=== PATIENT | female | born 1990 ===

== ENCOUNTER 2021-05-07 14:13 | Inpatient (IN) | payer BC ==
[2021-05-07] MEDS ORDERED: miSOPROStoL 100 MCG TAB VAG ONE (14:14)
[2021-05-07] MEDS ORDERED: Ringers Lactate 1,000 ML IV PRN (14:14)
[2021-05-07] MEDS ORDERED: CARBOPROST TROME 250 MCG/ML IM PRN (14:14)
--- OUTSIDE RECORDS SUMMARY | 2021-05-07 14:15 | XMS REPORT | Continuity of Care Document ---
:1990 Author Organization [facility] t Address [address] [place] [address] [address]. [address] [place] [address] Care Team Providers Name Role Phone PCP, DOES NOT HAVE A Primary Care Physician Unavailable NAT Attending Clinician Unavailable Nat LOBO Attending Clinician Manish BEST Attending Clinician Unavailable Urszula HOFF Attending Clinician Unavailable Urszula HOFF Attending Clinician Unavailable KAVYA Attending Clinician Unavailable Payers Payer Name Policy Type Policy Number Effective Date Expiration Date S tommy [facility] [id number] 2019 00:00:00 Problems Condition Condition Condition Status Onset Resolution Last Treating Co mments Source Name Details Category Date Date Treatment Clinician Date No known No known Disease Unive rs active active ity of problems problems [facility] Allergies, Adverse Reactions, Alerts Allergy Allergy Status Severity Reaction(s) Onset Inactive Treating Comm ents Source Name Type Date Date Clinician NO KNOWN Drug Active Univers ALLERGIE Class ity of S [facility] Social History Social Habit Start Date Stop Date Quantity Comments Source Exposure to Not sure [facility] SARS-CoV-2 (event) Medica l Branch Sex Assigned At [birth year] [facility] 00:00:00 00:00:00 [facility] Smoking Status Start Date Stop Date Source Unknown if ever smoked [facility] Medications Ordered Filled Start Stop Current Ordering Indication Dosage Frequency Signature Comments Components Source Medication Medication Date Date Medication? Clinician (SIG) Name Name ketoconazol 2020-06 Yes [id number] Apply to Univers e 2 % cream 0-28 area(s) ity o f 00:00: daily. [address] metroNIDAZO 2020-06 Yes [id number] Apply to Univers LE 0.75 % 0-28 area(s) ity of gel 00:00: daily. [place] 00 Apply thin Medical film to Branch skin. ketoconazol 2020-06 Yes [id number] Apply to Univers e 2 % 0-28 area(s) it[place] of [place] Medical for Branch Itching. ketoconazol 2020- No [id number] Apply to Univers e 2 % cream 9-28 10-28 area(s) ity of 00:00: 00:00 daily. [place] 00 :00 Medical Branch metroNIDAZO 2020- No [id number] Apply to Univers LE 0.75 % 8-26 10-28 area(s) ity of gel 00:00: 00:00 daily. [place] 00 :00 Apply thin Medical film to Branch skin. fluocinonid 2019-06 Yes [id number] Apply to Univers e 0.05 % 2-14 area(s) 2 ity of solution 00:00: (two) [place] 00 times Medical daily. Branch ketoconazol 2019-06- No [id number] Apply to Univers e 2 % 1-16 10-28 area(s) ity of shampoo 00:00: 00:00 once daily Marco A as 00 :00 as needed Medical for Branch Itching. Procedures This patient has no known procedures. Encounters Start End Encounter Admission Attending Care Care Encounter Source Date/Time Date/Time Type Type Clinicians Facility Department ID 2021-04-05 2021-04-05 Outpatient Yin YOO [facility] [id number] [facility] 16:40:00 16:46:[address] [facility] 2021-04-05 2021-04-05 Office Nat [facility] [id number] [facility] 16:35:44 16:46:23 Visit Anna GUTHRIE [id number] TatyanaY [id number] [facility] [id number] [facility] AND KELLY [address] [place] [address] [facility] 2021-04-05 2021-04-05 Outpatient R NAT [facility] [id number] [facility] 16:40:00 16:40:00 ANNA Brady028 ity [facility] 2021-03-06 2021-03-06 Outpatient R NAT [facility] [id number] Univers 15:00:00 15:00:00 ANNA [id number] ity [facility] 2021-03-06 2021-03-06 Outpatient R NAT [facility] [id number] Univers 15:00:00 [facility]00:[facility] 2021-02-01 Out[facility] R NAT [facility] [id number] Univers 10:20:00 10:20:00 ANNA [id number] [facility] 2021-02-01 2021-02-01 Outpatient R NAT [facility] [id number] Univers 10:20:00 10:20:00 ANNA [facility] 2021-01-26 2021-01-26 Outpatient R [facility] [id number] Univers 10:00:00 10:00:00 [id number] [facility] 2020-12-13 2020-12-13 Outpatient ADUM, [facility] [id number] Univers 09:30:00 09:30:00 NELSON [id number] [facility] 2020-12-13 2020-12-13 Outpatient R ADNICKY, [facility] [id number] Univers 09:30:00 09:30:00 NELSON [facility] 2020-05-22 2020-05-22 Outpatient R [facility] [id number] Univers 13:45:00 13:45:00 [id number] [facility] 2020-05-22 2020-05-22 Outpatient R QASIM HOFF [facility] [id number] Univers 13:45:00 13:45:00 QASIM HOFF i ty [facility] 2020-04-24 2020-04-24 Outpatient R KAVYA [facility] [id number] Univers 13:30:00 13:30:00 KAYLIE [facility] Results This patient has no known results.
[2021-05-07] MEDS ORDERED: OXYTOCIN/LR 20 UNIT/1,000 ML BAG IV SCH (15:00)
[2021-05-07] MEDS: Ringers Lactate 1,000 ML IV SCH (15:05)
[2021-05-07 15:06] VITALS: BMI 33.3
[2021-05-07 15:08] LABS: Absolute Lymphocytes (CBC) 1.4 K/uL (0.7-4.9); Basophils % 0.3 % (0-1.3); Hematocrit 37.7 % (36.0-45.0); Lymphocytes % 16.6 % (15.3-44.8); RBC Red Blood Cell Count 4.12 M/uL (3.86-4.86)
[2021-05-07 15:15] LABS: Urine Appearance Clear (Clear); Urine Bilirubin Negative (Negative); Urine Blood 1+ (Negative); Urine Color Yellow (Yellow); Urine Glucose Negative (Negative); Urine Protein Negative (Negative); Urine Urobilinogen 0.2 mg/dL (0.2-1.0); Urine pH 5.5 (5.0-7.0)
[2021-05-07 15:16] LABS: Urine Microscopic Reflex ORDER UMIC
[2021-05-07 15:27] LABS: Urine RBC <5 /HPF (NONE SEEN)
[2021-05-07 15:28] LABS: Urine Bacteria <20 /HPF (<20); Urine Mucus 1+ /HPF (NONE SEEN)
[2021-05-07] MEDS ORDERED: INFLUENZA VACCINE (for 6+ mo) 0.5 ML DOSE IMVAC ONE (16:00)
--- NOTE | 2021-05-07 16:20 | PREOPHP ---
Date of Admission: 05/07/2021 History Of Present Illness: Linda Donaldson is a 31-year-old, primigravida, at 40 weeks 2 days, for induction. Pros and cons of Cytotec versus Pitocin versus expectant management discussed. The patie nt knows fully well that this could be a prolonged labor as this is her first baby and her cervix is not extremely favorable. Family History: Noncontributory. Past Medical History: Elbow surgery at the age of 11. No serious medical illnesses. Allergies: NO ALLERGIES. Medications: No medicines prior to admission other than vitamins and iron. Social History: Does not smoke. Physical Examination: HEENT: Clear. Pupils equal, round, reactive to light and accommodation. Conjunctivae well perfused . No oral, lingual, or buccal lesions. Chest and Lungs: Clear. Heart: Without murmurs, thrills, heaves, or rubs. Breasts: Without masses on previous visits. Abdomen: Term. Extremities: Clear without edema, cyanosis, or clubbing. Assessment And Plan: Cervix is 1.5 cm, possibly 40% effaced, vertex, -1 to -2 station, well applied to the cervix. A 50 mcg of Cytotec inserted. We will insert another 50 mcg in 6 hours unless ruptur e of membranes occur. Then, total of three 50 mcg doses of Cytotec are planned unless rupture of mem branes or active labor occurs. Full labor talk. Anticipate delivery sometime tomorrow. Rh positive, immune to rubella, negative COVID, negative strep. NBC/MODL Voice ID: [id number]
[2021-05-07] MEDS ORDERED: miSOPROStoL 100 MCG TAB VAG SCH (21:35)
[2021-05-07] MEDS ORDERED: ZOLPIDEM TARTRATE 10 MG TABLET PO PRN (21:49)
[2021-05-08] MEDS ORDERED: LABETALOL 20 MG/4ML SYRINGE IV STA (00:07)
[2021-05-08] MEDS ORDERED: LABETALOL 20 MG/4ML SYRINGE IV ONE ×3 (00:12→10:10)
[2021-05-08 00:15] LABS: RPR (Rapid Plasma Reagin) NON-REACT (NON-REACT)
[2021-05-08] MEDS: BUTORPHANOL 1 MG/ML INJ IV PRN ×3 (00:26→07:46)
[2021-05-08] MEDS: PROMETHAZINE INJ 25 MG/ML AMP IM PRN ×3 (00:26→07:47)
[2021-05-08] MEDS: Ringers Lactate 1,000 ML IV SCH (02:26)
[2021-05-08 07:33] LABS: Urine Appearance Clear (Clear); Urine Bilirubin Negative (Negative); Urine Blood 3+ (Negative); Urine Color DK YELLOW (Yellow); Urine Glucose Negative (Negative); Urine Microscopic Reflex ORDER UMIC; Urine Protein 1+ (Negative); Urine Urobilinogen 0.2 mg/dL (0.2-1.0)
[2021-05-08 07:45] LABS: Urine Bacteria <20 /HPF (<20); Urine RBC >50 /HPF (NONE SEEN)
[2021-05-08] MEDS ORDERED: ROPIVACAINE HCL 0.2% 20ML AMP IV ONE (07:59)
[2021-05-08] MEDS ORDERED: FENTANYL CITR 100 MCG/2 ML IV ONE (07:59)
[2021-05-08] MEDS ORDERED: BUPIVACAINE 0.25% PF 10 ML VIAL IJ PRN (07:59)
[2021-05-08] MEDS ORDERED: 0.2% ROPIVACAINE (200 MG/100 ML) BAG EP ONE (08:00)
--- NOTE | 2021-05-08 08:12 | PN ---
Linda Donaldson is a 31-year-old female, primigravida, now 40 weeks and 3 days had Cytotec inserted x 3. Now, 3 cm, 50% effaced vertex, -1 to -2 station. Rupture of membranes, clear fluid. FHTs normal , reactive. She is parminder regularly. The patient states she is probably going to want an epidu ral as the labor progresses. Full discussion on that point. Her blood pressures have been labile. At 1 point, the blood pressure exceeded 165 systolic when the patient was given 10 mg of labetalol IV . Her reflexes this morning are brisk. There is no edema whatsoever. Protein on 2 checks has been negative, but we will get another spastic catch and if positive, start her on magnesium sulfate. If protein remains negative, we will treat the blood pressures if they exceed prescribed limits. Full l abor talk given. Anticipate more rapid progress once we get to 4-5. Anticipate delivery sometime la ter today. MILTON/SHELTON Voice ID: [id number] Report ID: [id number]
[2021-05-08] MEDS ORDERED: MAGNESIUM SULF/STERILE WATER 1,000 ML IV SCH (09:00)
[2021-05-08 09:56] LABS: Basophils % 0.3 % (0-1.3); Hematocrit 39.3 % (36.0-45.0); Lymphocytes % 11.2 % (15.3-44.8); MPV 8.6 fL (7.6-11.3); RBC Red Blood Cell Count 4.27 M/uL (3.86-4.86)
[2021-05-08 10:05] LABS: UR PROTEIN 36.2 mg/dL (<11.9); Urine Protein/Creatinine Ratio 0.51 ratio (<0.15)
[2021-05-08] MEDS ORDERED: LABETALOL 20 MG/4ML SYRINGE IV PRN (10:08)
[2021-05-08 10:13] LABS: ALT/SGPT 24 U/L (12-78); AST/SGOT 26 U/L (15-37); Albumin 2.9 g/dL (3.4-5.0); Alkaline Phosphatase 143 U/L (45-117); BUN Blood Urea Nitrogen 7 mg/dL (7-18); Bicarbonate 21 mmol/L (21-32); Bilirubin Total 0.3 mg/dL (0.2-1.0); Glucose Level 92 mg/dL (74-106); Potassium 3.7 mmol/L (3.5-5.1); Protein, Total 7.2 g/dL (6.4-8.2); Sodium Level 138 mmol/L (136-145); Uric Acid 3.3 mg/dL (2.6-6.0)
--- NOTE | 2021-05-08 13:18 | PN ---
Baby is looking very good. She is parminder regularly. She is on 18 milliunits of Pitocin. Her l eft leg is so numb, she cannot feel it, cannot move it, we will turn the epidural maintenance dose fr om 10 to 8 and down further if we need to as time progresses. Her cervix is still the same, still po sterior, 3 to 3.5 cm, 60% effaced, still about -1 to possibly even -2 station. If she makes no progr ess in the next couple of hours, we will start considering , which we have already brought u p with the patient, right now, I think it is too early to call. MILTON/SHELTON Voice ID: [id number] Report ID: [id number]
[2021-05-08] MEDS ORDERED: METHYLERGONOVINE 0.2MG/ML AMP IM ONE (15:49)
[2021-05-08] MEDS ORDERED: LIDOCAINE 1% MPF 30 ML VIAL SQ ONE (15:50)
[2021-05-08] MEDS ORDERED: CARBOPROST TROME 250 MCG/ML IM PRN (16:00)
[2021-05-08] MEDS ORDERED: TRANEXAMIC ACID 1,000 MG/10 ML VIAL IV ONE (16:01)
[2021-05-08] MEDS ORDERED: miSOPROStoL 100 MCG TAB ONE (16:01)
--- NOTE | 2021-05-08 16:24 | PN ---
The patient is still extremely numb on the left side, cannot really move that leg very well. Baby lo oks good. Vital signs are all in the normal range. She is now dilated to 7 cm, 80% to 90% effaced, vertex, -1 to almost 0 station. It looks like probably starting to make some progress. Magnesium le gabriel was 5, well within the therapeutic range. We will check her again in 30-45 minutes. If she micha ot push effectively, we will turn off the epidural since that I think it will probably take more than an hour to wear off even if it were turned off at this point. MILTON/SHELTON Voice ID: [id number] Report ID: [id number]
[2021-05-08] MEDS ORDERED: CEFAZOLIN/NS 1gm 1 GM/50 ML BAG IVPB ONE (17:15)
[2021-05-08] MEDS ORDERED: BISACODYL 10 MG RECTAL SUPP PR PRN (17:21)
[2021-05-08] MEDS ORDERED: Oxycodone HCl/Acetaminophen 1 TAB TAB PO PRN ×2 (17:21→17:24)
[2021-05-08] MEDS ORDERED: DOCUSATE NA/SENNA CONC 1 TAB PO PRN (17:21)
[2021-05-08] MEDS ORDERED: miSOPROStoL 100 MCG TAB PO PRN (17:24)
[2021-05-08] MEDS: IBUPROFEN 200 MG TAB PO PRN (17:33)
--- NOTE | 2021-05-08 17:33 | OP ---
Surgeon: Joaquín Hightower MD Procedure In Detail: Linda Donaldson is a 31-year-old primigravida, 40 weeks 2 days, had Cytotec ins erted 50 mcg x3 one every 6 hours. This morning, rupture of membranes at 3 cm, clear fluid. Stadol 1 mg IV, Phenergan 25 mg IM at approximately 3.5 cm, patient requested and received epidural anesthes ia, which gave excellent effect at first, in fact too much where the patient could not move her left leg and could not feel the contractions whatsoever. Maintenance dose was reduced from 10-8 and was e ffective thereafter. Her function of her left leg never really completely returned. The patient ottoniel t to complete second stage of about 20-25 minutes spontaneous vaginal delivery of a 7 pounds 6 ounces male infant Apgars 6 or 7 at one minute, 8 at five minutes. Nuchal cord loosely x1. Second-degree laceration repaired with 2-0 chromic under local infiltration. Schultze delivery of the placenta was inspected and noted to be intact and normal. Estimated blood loss 350 cc. Rh positive, immune rube lla, negative strep, negative COVID. The patient tolerated all procedures well. Intrauterine gestation 40 weeks 2 days, Cytotec insertion, vaginal delivery at 40 weeks 3 days, epidu ral anesthesia. The patient became preeclamptic during the labor. Had blood pressure at one point a s high the 190 systolic, was given labetalol on 3 occasions and blood pressure returned to normal aft er the epidural blood pressures were completely normal. Protein was +1. Her reflexes were brisks. Never really had any significant edema. We will continue the magnesium sulfate until she begins to d iurese are until 24 hours. Magnesium level drawn today was 5, which is well within the therapeutic r shawn. We will start back at 2 g an hour maintenance dose. Fox catheter inserted. We will give pa mil a gram of Ancef now and probably when the Fox, discontinue for prophylaxis. Final Diagnoses: Term intrauterine 40 weeks and 2 days, Cytotec for labor induction, vagin al delivery, epidural anesthesia, preeclampsia, loose nuchal cord. NBC/MODL Voice ID: [id number] Report ID: [id number]
[2021-05-09] MEDS: PHENOBARBITAL 32.4 MG TABLET PO SCH ×2 (03:15→08:26)
[2021-05-09] MEDS ORDERED: CEFAZOLIN/NS 1gm 1 GM/50 ML BAG IVPB ONE (07:35)
[2021-05-09 09:12] VITALS: O2SAT 100
[2021-05-09] MEDS: IBUPROFEN 200 MG TAB PO PRN (10:02)
[2021-05-09 16:48] VITALS: BP 124/85; TEMP 97.7
[2021-05-09] MEDS ORDERED: INFLUENZA VACCINE (for 6+ mo) 0.5 ML DOSE IMVAC ONE (18:00)
[2021-05-09 18:47] LABS: HBsAG Nonreactive (Nonreactive)
== END 2021-05-09 19:00 | disposition home or self-care (01) | DRG 807 ==
LOC: 2ND-WC 14:13
PROVIDERS: ADMIT Specialist; ATTEND Specialist
PROC: 10E0XZZ Delivery of Products of Conception, External Approach (ICD-10-PCS; principal; 2021-05-08)
PROC: 0KQM0ZZ Repair Perineum Muscle, Open Approach (ICD-10-PCS; 2021-05-08)
PROC: 3E0P7VZ Introduction of Hormone into Female Reproductive, Via Natural or Artificial Opening (ICD-10-PCS; 2021-05-08)
DX: O48.0 Post-term pregnancy (principal); Z37.0 Single live birth; Z3A.40 40 weeks gestation of pregnancy; O70.1 Second degree perineal laceration during delivery; O14.94 Unspecified pre-eclampsia, complicating childbirth; O69.81X0 Labor and delivery complicated by cord around neck, without compression, not applicable or unspecified; Z20.822 Contact with and (suspected) exposure to COVID-19; Z23 Encounter for immunization
CPT/HCPCS: 36415; 80053; 81003; 81015; 82570; 83735; 84156; 84550; 85025; 86592; 86901; 87086; 87088; 87340; 90471; J0595; J0690; J2210; J2550; J2590; J2795; J3010; J3475; J7120; Q2035

== ENCOUNTER 2021-05-10 19:50 | Emergency (ER) | payer BC ==
--- OUTSIDE RECORDS SUMMARY | 2021-05-10 19:55 | XMS REPORT | Continuity of Care Document ---
:1990 Author Organization [facility] t Address [address] [place] [address] Dr. [address] [place] [address] Care Team Providers Name Role Phone PCP, DOES NOT HAVE A Primary Care Physician Unavailable NAT Attending Clinician Unavailable Nat LOBO Attending Clinician Manish BEST Attending Clinician Unavailable Urszula HOFF Attending Clinician Unavailable Urszula HOFF Attending Clinician Unavailable KAVYA Attending Clinician Unavailable Payers Payer Name Policy Type Policy Number Effective Date Expiration Date S tommy [facility] [id number] 2019 00:00:00 Problems Condition Condition Condition Status Onset Resolution Last Treating Co mments Source Name Details Category Date Date Treatment Clinician Date No known No known Disease Unive rs active active ity of problems problems [facility] Allergies, Adverse Reactions, Alerts Allergy Allergy Status Severity Reaction(s) Onset Inactive Treating Comm ents Source Name Type Date Date Clinician NO KNOWN Drug Active Univers ALLERGIE Class ity of S [facility] Social History Social Habit Start Date Stop Date Quantity Comments Source Exposure to Not sure [facility] SARS-CoV-2 (event) Medica l Branch Sex Assigned At [birth year] [facility] 00:00:00 00:00:00 [facility] Smoking Status Start Date Stop Date Source Unknown if ever smoked [facility] Medications Ordered Filled Start Stop Current Ordering Indication Dosage Frequency Signature Comments Components Source Medication Medication Date Date Medication? Clinician (SIG) Name Name ketoconazol 2020-06 Yes [id number] Apply to Univers e 2 % cream 0-28 area(s) ity o f 00:00: daily. [address] metroNIDAZO 2020-06 Yes [id number] Apply to Univers LE 0.75 % 0-28 area(s) ity of gel 00:00: daily. [place] 00 Apply thin Medical film to Branch skin. ketoconazol 2020-06 Yes [id number] Apply to Univers e 2 % 0-28 area(s) ity of shampoo [place] as needed Medical for Branch Itching. ketoconazol 2020- No [id number] Apply to Univers e 2 % cream 9-28 10-28 area(s) ity of 00:00: 00:00 daily. [place] 00 :00 Medical Branch metroNIDAZO 2020- No [id number] Apply to Univers LE 0.75 % 8-26 10-28 area(s) ity of gel 00:00: 00:00 daily. [place] 00 :00 Apply thin Medical film to Branch skin. fluocinonid 2019-06 Yes [id number] Apply to Univers e 0.05 % 2-14 area(s) 2 ity of solution 00:00: (two) [place] 00 times Medical daily. Branch ketoconazol 2019-06- No [id number] Apply to Univers e 2 % 1-16 10-28 area(s) ity of shampoo 00:00: 00:00 once daily Marco A as 00 :00 as needed Medical for Branch Itching. Procedures This patient has no known procedures. Encounters Start End Encounter Admission Attending Care Care Encounter Source Date/Time Date/Time Type Type Clinicians Facility Department ID 2021-04-05 2021-04-05 Outpatient Yin YOO [facility] [id number] [facility] 16:40:00 16:46:23 ANNA rangely of [facility] 2021-04-05 2021-04-05 Office Nat [facility] [id number] [facility] 16:35:44 16:46:23 Visit Anna GUTHRIE [id number] TatyanaY [id number] [facility] [place] [facility] [id number] [facility] AND KELLY [address] [place] [address] DIABETES CLINIC 2021-04-05 2021-04-05 Outpatient R NAT [facility] [id number] [facility] 16:40:00 16:40:00 ANNA [id number] ity [facility] 2021-03-06 2021-03-06 Outpatient R NAT [facility] [id number] Univers 15:00:00 15:00:00 ANNA [id number] ity [facility] 2021-03-06 2021-03-06 Outpatient R NAT [facility] [id number] Univers 15:00:00 [facility]00:[facility] 2021-02-01 Outpatient R NAT [facility] [id number] Univers 10:20:00 10:20:00 ANNA [id number] [facility] 2021-02-01 2021-02-01 Outpatient R NAT [facility] [id number] Univers 10:20:00 10:20:00 ANNA [facility] 2021-01-26 2021-01-26 Outpatient R [facility] [id number] Univers 10:00:00 10:00:[facility] [id number] [facility] 2020-12-13 2020-12-13 Outpatient ADUM, [facility] [id number] Univers 09:30:00 09:30:00 NELSON [id number] [facility] 2020-12-13 2020-12-13 Outpatient R ADNICKY, [facility] [id number] Univers 09:30:00 09:30:00 NELSON [facility] 2020-05-22 2020-05-22 Outpatient R [facility] [id number] Univers 13:45:00 13:45:[facility] [id number] [facility] 2020-05-22 2020-05-22 Outpatient R QASIM HOFF [facility] [id number] Univers 13:45:00 13:45:00 QASIM HOFF i ty [facility] 2020-04-24 2020-04-24 Outpatient R KAVYA [facility] [id number] Univers 13:30:00 13:30:00 KAYLIE [facility] Results This patient has no known results.
[2021-05-10 20:24] LABS: Urine Blood 3+ (Negative); Urine Glucose Negative (Negative); Urine Protein Negative (Negative); Urine Specific Gravity 1.015 (1.005-1.030); Urine pH 7.5 (5.0-7.0)
[2021-05-10 20:58] LABS: Urine Bacteria 20-50 /HPF (<20); Urine RBC 20-50 /HPF (NONE SEEN)
[2021-05-10] MEDS ORDERED: LABETALOL HCL 100 MG TAB ONE (21:01)
[2021-05-10] MEDS ORDERED: LABETALOL 20 MG/4ML SYRINGE IV ONE (21:01)
[2021-05-10] MEDS ORDERED: NA CHLORIDE 0.9% 1,000 ML ONE (21:02)
[2021-05-10] MEDS ORDERED: Magnesium Sulfate 2gm IVPB 2 G/50 ML BAG IV ONE (21:02)
--- NOTE | 2021-05-10 21:21 | RAD REPORT ---
EXAM DESCRIPTION: RAD - Chest Single View - 05/10/2021 9:05 pm CLINICAL HISTORY: dizzy COMPARISON: <Comparisons> FINDINGS: Lines: None. Lungs: No evidence of edema or pneumonia. Pleural: No significant pleural effusions or pneumothorax. Cardiac: The heart size is within normal limits. Bones: No acute fractures. Other: IMPRESSION: No acute cardiopulmonary disease.
[2021-05-10 21:43] LABS: Absolute Lymphocytes (CBC) 1.6 K/uL (0.7-4.9); Basophils % 0.3 % (0-1.3); Hematocrit 30.3 % (36.0-45.0); Lymphocytes % 20.7 % (15.3-44.8); MPV 8.2 fL (7.6-11.3); RBC Red Blood Cell Count 3.24 M/uL (3.86-4.86)
[2021-05-10 22:01] LABS: Protime INR 0.89
[2021-05-10 22:06] LABS: ALT/SGPT 25 U/L (12-78); AST/SGOT 26 U/L (15-37); Albumin 2.5 g/dL (3.4-5.0); Alkaline Phosphatase 88 U/L (45-117); BUN Blood Urea Nitrogen 9 mg/dL (7-18); Bicarbonate 26 mmol/L (21-32); Bilirubin Direct < 0.1 mg/dL (0-0.2); Bilirubin Total 0.3 mg/dL (0.2-1.0); Glucose Level 83 mg/dL (74-106); Magnesium 1.7 mg/dL (1.8-2.4); NT PRO-BNP 102 pg/mL (<125); Potassium 3.8 mmol/L (3.5-5.1); Protein, Total 6.3 g/dL (6.4-8.2); Sodium Level 141 mmol/L (136-145); Troponin (Emerg Dept Use Only) < 0.02 ng/mL (0.0-0.045)
[2021-05-10] MEDS ORDERED: CEFTRIAXONE 1000 MG/VIAL ONE (22:34)
[2021-05-10] MEDS ORDERED: ONDANSETRON 4 MG/2 ML VIAL ONE (22:40)
--- NOTE | 2021-05-10 23:07 | EDPHYS ---
Physician Documentation [facility] Name: Linda Donaldson Age: 31 yrs Sex: Female : 1990 Arrival Date: 05/10/2021 Time: 19:56 Bed 4 Private MD: SANDY Physician Tito Ceja HPI: 05/10 20:54 This 31 yrs old Unknown Female presents to ER via Ambulatory with complaints of fabiana LIGHTHEADED, High Blood Pressure. 20:54 The patient has elevated blood pressure and discovered this at home, with a home fabinaa device. Onset: The symptoms/episode began/occurred 1 day(s) ago. Modifying factors: The symptoms are aggravated by activity, The symptoms are alleviated by remaining still. Associated signs and symptoms: Pertinent positives: dizziness, headache, lightheadedness. Severity of symptoms: At its worst the blood pressure was moderate, in the emergency department the blood pressure is unchanged. The patient has not experienced similar symptoms in the past. 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 - Social history:: Smoking status: Patient denies any tobacco usage or history of. Patient/guardian denies using alcohol, street drugs. - Family history:: not pertinent. ROS: 20:54 Constitutional: Negative for fever, chills, and weight loss, Eyes: Negative for injury, fabiana pain, redness, and discharge, ENT: Negative for injury, pain, and discharge, Neck: Negative for injury, pain, and swelling, Cardiovascular: Negative for chest pain, palpitations, and edema, Respiratory: Negative for shortness of breath, cough, wheezing, and pleuritic chest pain, Abdomen/GI: Negative for abdominal pain, nausea, vomiting, diarrhea, and constipation, Back: Negative for injury and pain, : Negative for injury, bleeding, discharge, and swelling, MS/Extremity: Negative for injury and deformity, Skin: Negative for injury, rash, and discoloration, Psych: Negative for depression, anxiety, suicide ideation, homicidal ideation, and hallucinations, Allergy/Immunology: Negative for hives, rash, and allergies, Endocrine: Negative for neck swelling, polydipsia, polyuria, polyphagia, and marked weight changes, Hematologic/Lymphatic: Negative for swollen nodes, abnormal bleeding, and unusual bruising. 20:54 Neuro: Positive for dizziness. Exam: 20:54 Constitutional: This is a well developed, well nourished patient who is awake, alert, fabiana and in no acute distress. Head/Face: Normocephalic, atraumatic. Eyes: Pupils equal round and reactive to light, extra-ocular motions intact. Lids and lashes normal. Conjunctiva and sclera are non-icteric and not injected. Cornea within normal limits. Periorbital areas with no swelling, redness, or edema. ENT: Nares patent. No nasal discharge, no septal abnormalities noted. Tympanic membranes are normal and external auditory canals are clear. Oropharynx with no redness, swelling, or masses, exudates, or evidence of obstruction, uvula midline. Mucous membranes moist. Neck: Trachea midline, no thyromegaly or masses palpated, and no cervical lymphadenopathy. Supple, full range of motion without nuchal rigidity, or vertebral point tenderness. No Meningismus. Chest/axilla: Normal chest wall appearance and motion. Nontender with no deformity. No lesions are appreciated. Cardiovascular: Regular rate and rhythm with a normal S1 and S2. No gallops, murmurs, or rubs. Normal PMI, no JVD. No pulse deficits. Respiratory: Lungs have equal breath sounds bilaterally, clear to auscultation and percussion. No rales, rhonchi or wheezes noted. No increased work of breathing, no retractions or nasal flaring. Abdomen/GI: Soft, non-tender, with normal bowel sounds. No distension or tympany. No guarding or rebound. No evidence of tenderness throughout. Back: No spinal tenderness. No costovertebral tenderness. Full range of motion. Female : Normal external genitalia. Skin: Warm, dry with normal turgor. Normal color with no rashes, no lesions, and no evidence of cellulitis. MS/ Extremity: Pulses equal, no cyanosis. Neurovascular intact. Full, normal range of motion. Neuro: Awake and alert, GCS 15, oriented to person, place, time, and situation. Cranial nerves II-XII grossly intact. Motor strength 5/5 in all extremities. Sensory grossly intact. Cerebellar exam normal. Normal gait. Psych: Awake, alert, with orientation to person, place and time. Behavior, mood, and affect are within normal limits. 21:30 ECG was reviewed by the Attending Physician. [facility] Vital Signs: 20:00 BP 149 / 102; Pulse 74; Resp 18; Temp 98.1(O); Pulse Ox 99% on R/A; Weight 102.51 kg; ld1 Height 5 ft. 9 in. (175.26 cm); Pain 0/10; 20:00 Body Mass Index 33.37 (102.51 kg, 175.26 cm) ld1 MDM: 20:40 Patient medically screened. [facility] 20:55 Differential diagnosis: hypertensive crisis, Malignant HTN. Data reviewed: vital signs, [facility] nurses notes, lab test result(s), EKG, radiologic studies, plain films. Data interpreted: quality assurance monitor final: rate is 74 beats/min, rhythm is regular, Pulse oximetry: on room air is 99 %. Test interpretation: by ED physician or midlevel provider: ECG, plain radiologic studies. Counseling: I had a detailed discussion with the patient and/or guardian regarding: the historical points, exam findings, and any diagnostic results supporting the discharge/admit diagnosis, the presence of at least one elevated blood pressure reading (>120/80) during this emergency department visit, lab results, radiology results, the need for outpatient follow up, for definitive care, an OB/Gyne specialist. 05/10 20:23 Order name: Urine Microscopic Only; Complete Time: 21:29 lp1 05/10 20:24 Order name: Urine Dipstick-Ancillary EDMS 05/10 20:44 Order name: Basic Metabolic Panel; Complete Time: 22:37 [facility] 05/10 20:44 Order name: CBC with Diff; Complete Time: 22:37 [facility] 05/10 20:44 Order name: LFT's; Complete Time: 22:37 [facility] 05/10 20:44 Order name: Magnesium; Complete Time: 22:37 [facility] 05/10 20:44 Order name: NT PRO-BNP; Complete Time: 22:37 [facility] 05/10 20:44 Order name: PT-INR; Complete Time: 22:37 [facility] 05/10 20:44 Order name: Troponin (emerg Dept Use Only); Complete Time: 22:37 [facility] 05/10 20:44 Order name: XRAY Chest (1 view); Complete Time: 21:29 [facility] 05/10 20:59 Order name: Urine Culture EDMS 05/10 22:22 Order name: CT Head Brain wo Cont [facility] 05/10 20:23 Order name: Urine Dipstick-Ancillary (obtain specimen); Complete Time: 20:34 lp1 05/10 20:44 Order name: EKG; Complete Time: 20:45 [facility] 05/10 20:44 Order name: Cardiac monitoring; Complete Time: 22:31 [facility] 05/10 20:44 Order name: EKG - Nurse/Tech; Complete Time: 22:32 [facility] 05/10 20:44 Order name: IV Saline Lock; Complete Time: 22:32 [facility] 05/10 20:44 Order name: Labs collected and sent; Complete Time: 22:32 [facility] 05/10 20:44 Order name: O2 Per Protocol; Complete Time: 22:32 [facility] 05/10 20:44 Order name: O2 Sat Monitoring; Complete Time: 22:32 [facility] 05/10 20:44 Order name: Seizure Precautions; Complete Time: 22:29 [facility] EC:30 Rate is 81 beats/min. Rhythm is regular. QRS [place] is Normal. MO interval is normal. QRS fabiana interval is normal. QT interval is normal. No Q waves. T waves are Normal. No ST changes noted. Clinical impression: Normal ECG and No evidence of ischemia. Interpreted by me. Reviewed by me. Administered Medications: 20:55 Drug: Labetalol 100 mg Route: PO; [facility] 05/11 00:04 Follow up: Response: No adverse reaction; Blood pressure is lowered [facility] 12/ 20:55 Drug: NS 0.9% 1000 ml Route: IV; Rate: 125 ml/hr; Site: right antecubital; [facility] 12 00:04 Follow up: IV Status: Completed infusion; IV Intake: 1000ml [facility] 05/10 21:00 Drug: Magnesium Sulfate 2 grams Route: IVPB; Infused Over: 2 hrs; Site: right cc4 antecubital; 22:00 Follow up: Response: No adverse reaction cc 21:30 Drug: Labetalol 20 mg Route: IVP; Infused Over: 2 mins; Site: right antecubital; cc4 22:00 Follow up: Response: No adverse reaction; Blood pressure is lowered cc4 22:30 Drug: Rocephin (cefTRIAXone) 1 grams Route: IV; Rate: per protocol; Site: right cc4 antecubital; 22:35 Follow up: Response: Vomiting increased; Other cc4 22:35 Drug: Zofran (Ondansetron) 4 mg Route: IVP; Site: right antecubital; cc4 23:00 Follow up: Response: No adverse reaction; Nausea is decreased cc4 23:45 Drug: Labetalol 10 mg Route: IVP; Site: right antecubital; cc4 Disposition Summary: 05/10/21 23:07 Discharge Ordered Location: Home fabiana Problem: new fabiana Symptoms: have improved fabiana Condition: Stable fabiana Diagnosis - Gestational [-induced] hypertension without significant proteinuria, fabiana complicating the puerperium - Essential (primary) hypertension fabiana - Proteinuria, unspecified fabiana - Hypomagnesemia fabiana Followup: fabiana - With: Private Physician - When: 2 - 3 days - Reason: Recheck today's complaints, Continuance of care, Re-evaluation by your physician Followup: fabiana - With: - When: 2 - 3 days - Reason: Recheck today's complaints, Continuance of care, Re-evaluation by your physician Discharge Instructions: - Discharge Summary Sheet fabiana - Hypertension, Adult fabiana - Proteinuria fabiana - Hypertension, Adult, [id number] fabiana - Hypertension During , [id number] fabiana - Hypomagnesemia fabiana - Hypertension During fabiana - Hypertension fabiana - Preventing Hypertension fabiana Forms: - Medication Reconciliation Form fabiana - Thank You Letter fabiana - Antibiotic Education fabiana - Prescription Opioid Use fabiana Prescriptions: - labetalol 100 mg Oral tablet - take 1 tablet by ORAL route 2 times per day; 30 tablet; Refills: 0, Product fabiana Selection Permitted - magnesium oxide - take 1 tablet by ORAL route 2 times per day; 30 tablet; Refills: 0, Product fabiana Selection Permitted Signatures: Dispatcher [employer] Tito Gtaes MD MD cha Pena, Laura, RN RN lp1 Penelope Moreira RN RN ld1 Shanta Hassan RN RN cc4 Corrections: (The following items were deleted from the chart) 20:03 20:02 PSHx: Unable to Obtain; ld1 ld1
--- NOTE | 2021-05-10 23:07 | ER ---
Nurse's Notes [facility] Name: Linda Donaldson Age: 31 yrs Sex: Female : 1990 Arrival Date: 05/10/2021 Time: 19:56 Bed 4 Private MD: Diagnosis: Gestational [-induced] hypertension without significant proteinuria, complicating the puerperium;Essential (primary) hypertension;Proteinuria, unspecified;Hypomagnesemia Presentation: 05/10 20:00 Chief complaint: Patient states: I was just discharged from this hospital last night, I ld1 just had a baby. I had pre eclampsia and my blood pressure has been running high today. I am feeling very tired and extremely dizzy. Coronavirus screen: At this time, the client does not indicate any symptoms associated with coronavirus-19. Ebola Screen: No symptoms or risks identified at this time. Initial Sepsis Screen: Does the patient meet any 2 criteria? No. Patient's initial sepsis screen is negative. Does the patient have a suspected source of infection? No. Patient's initial sepsis screen is negative. Risk Assessment: Do you want to hurt yourself or someone else? Patient reports no desire to harm self or others. 20:00 Method Of Arrival: Ambulatory ld1 20:00 Acuity: NARINDER 3 ld1 20:00 Onset of symptoms was May 10, 2021. ld1 Triage Assessment: 20:02 General: Appears in no apparent distress. comfortable, Behavior is calm, cooperative, ld1 appropriate for age. Pain: Denies pain. EENT: No signs and/or symptoms were reported regarding the EENT system. Neuro: Level of Consciousness is awake, alert, obeys commands, Oriented to person, place, time, situation, Appropriate for age Reports dizziness. Cardiovascular: Capillary refill < 3 seconds Patient's skin is warm and dry. Respiratory: Airway is patent Respiratory effort is even, unlabored, Respiratory pattern is regular, symmetrical. GI: Abdomen is round non-distended. : No signs and/or symptoms were reported regarding the genitourinary system. Derm: No signs and/or symptoms reported regarding the dermatologic system. Musculoskeletal: No signs and/or symptoms reported regarding the musculoskeletal system. 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 - Social history:: Smoking status: Patient denies any tobacco usage or history of. Patient/guardian denies using alcohol, street drugs. - Family history:: not pertinent. Screenin:55 Abuse screen: Denies threats or abuse. Nutritional screening: No deficits noted. cc4 Tuberculosis screening: No symptoms or risk factors identified. Fall Risk None identified. Assessment: 20:55 General: Appears in no apparent distress. Behavior is calm, cooperative. Pain: Denies cc4 pain. Neuro: No deficits noted. Level of Consciousness is awake, alert, obeys commands, Oriented to person, place, time, situation, Reports dizziness, since today. Cardiovascular: No deficits noted. Capillary refill < 3 seconds Rhythm is sinus rhythm. Respiratory: No deficits noted. Airway is patent Respiratory effort is even, unlabored, Respiratory pattern is regular, symmetrical. GI: No signs and/or symptoms were reported involving the gastrointestinal system. : No signs and/or symptoms were reported regarding the genitourinary system. EENT: No signs and/or symptoms were reported regarding the EENT system. Derm: No deficits noted. Skin is intact, is healthy with good turgor. Musculoskeletal: No deficits noted. Range of motion: intact in all extremities, EKG done; # 20 g angiocath inserted right AC x 1 attempt \T\ converted to saline lock with blood drawn \T\ sent to lab, tyrel.. well; IV NS hung to saline lock right AC \T\ infusing \T\ 125 ml/hr/pump wit no s/sx's of infiltration; BP elevated; medications given as ordered, tyrel. well with decrease in BP to normotensive state. Vital Signs: 20:00 BP 149 / 102; Pulse 74; Resp 18; Temp 98.1(O); Pulse Ox 99% on R/A; Weight 102.51 kg; ld1 Height 5 ft. 9 in. (175.26 cm); Pain 0/10; 20:00 Body Mass Index 33.37 (102.51 kg, 175.26 cm) ld1 ED Course: 19:56 Patient arrived in ED. ja2 20:02 Triage completed. ld1 20:02 Arm band placed on left wrist. ld1 20:34 Urine Microscopic Only Sent. ld1 20:34 Urine Dipstick-Ancillary Sent. ld1 20:40 Tito Ceja MD is Attending Physician. fabiana 20:55 Shanta Hassan, JACY is Primary Nurse. cc4 20:55 Patient has correct armband on for positive identification. Placed in gown. Bed in low cc4 position. Call light in reach. Side rails up X2. monitoring coordinator on. Pulse ox on. NIBP on. 21:04 XRAY Chest (1 view) In Process Unspecified. EDMS 22:32 CT Head Brain wo Cont Sent. cc4 23:04 CT Head Brain wo Cont In Process Unspecified. EDMS 23:07 Joaquín Hightower MD is Referral Physician. [facility] 12/03 00:04 No provider procedures requiring assistance completed. cc4 00:04 IV discontinued, intact, bleeding controlled, No redness/swelling at site. Pressure cc4 dressing applied. Administered Medications: 12 20:55 Drug: Labetalol 100 mg Route: PO; cc4 1203 00:04 Follow up: Response: No adverse reaction; Blood pressure is lowered cc4 12 20:55 Drug: NS 0.9% 1000 ml Route: IV; Rate: 125 ml/hr; Site: right antecubital; cc4 1203 00:04 Follow up: IV Status: Completed infusion; IV Intake: 1000ml cc4 12 21:00 Drug: Magnesium Sulfate 2 grams Route: IVPB; Infused Over: 2 hrs; Site: right cc4 antecubital; 22:00 Follow up: Response: No adverse reaction cc4 21:30 Drug: Labetalol 20 mg Route: IVP; Infused Over: 2 mins; Site: right antecubital; cc4 22:00 Follow up: Response: No adverse reaction; Blood pressure is lowered cc4 22:30 Drug: Rocephin (cefTRIAXone) 1 grams Route: IV; Rate: per protocol; Site: right cc4 antecubital; 22:35 Follow up: Response: Vomiting increased; Other cc4 22:35 Drug: Zofran (Ondansetron) 4 mg Route: IVP; Site: right antecubital; cc4 23:00 Follow up: Response: No adverse reaction; Nausea is decreased cc4 23:45 Drug: Labetalol 10 mg Route: IVP; Site: right antecubital; cc4 Intake: 05/11 00:04 IV: 1000ml; Total: 1000ml. cc4 Outcome: 05/10 23:07 Discharge ordered by . fabiana 05/11 00:04 Discharged to home ambulatory. cc4 Condition: improved Discharge instructions given to patient, Instructed on discharge instructions, follow up and referral plans. medication usage, Demonstrated understanding of instructions, follow-up care, medications, Prescriptions given X 2. Addendum: 05/15/2021 12:15 Addendum: Culture Results: Positive urine culture. No further action required. Bacteria i w sensitive to prescribed antibiotic. Patient was not prescribed antibiotics at discharge. Report given to FREDDIE for further evaluation and then to leather polisher for follow up with patient. Phone call Prescription called-in to pharmacy of choice. called in Macrobid 100 mg BID X 7 days, #14, no refills, Tha Mcallister. Signatures: Dispatcher [employer] EDDC Tito Ceja MD MD cha Williams, Irene, JACY LOUIE iw Penelope Moreira RN RN ld1 Linda Lau Christie, JACY RN cc4 Corrections: (The following items were deleted from the chart) 05/10 20:03 20:02 PSHx: Unable to Obtain; ld1 ld1 05/11 06:12 00:52 Patient left the ED. cc4 cc4
[2021-05-11] MEDS ORDERED: LABETALOL 20 MG/4ML SYRINGE IV ONE (00:03)
[2021-05-11 00:57] VITALS: BP 149/102; TEMP 98.1; O2SAT 99
--- NOTE | 2021-05-11 18:58 | RAD REPORT ---
EXAM DESCRIPTION: CT - Head Brain Wo Cont - 05/11/2021 6:39 am CLINICAL HISTORY: Dizziness; Headache COMPARISON: None. TECHNIQUE: Head/brain axial images acquired without contrast. Coronal and sagittal reformats created . Exam performed according to departmental dose-optimization program which includes automated exposur e control, adjustment of mA and/or kV according to patient size, and/or use of iterative reconstructi on technique. FINDINGS: No midline shift, mass effect, intracranial hemorrhage, or hydrocephalus. Brain parenchyma unremarkable. Small right maxillary sinus mucous retention cyst or polyp is partially imaged. Mastoid air cells clear. No skull fracture or significant skull lesion. IMPRESSION: Unremarkable CT head/brain without contrast. 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 The interpreting radiologist is fully responsible for the content of the report.
--- NOTE | 2021-05-12 12:38 | EKG ---
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
== END 2021-05-11 00:52 | disposition home or self-care (01) ==
LOC: ER 19:50
DX: O13.5 Gestational [pregnancy-induced] hypertension without significant proteinuria, complicating the puerperium (principal); E83.42 Hypomagnesemia; O12.15 Gestational proteinuria, complicating the puerperium
CPT/HCPCS: 96361; 93005; 87088; 85025; 87086; 80048; 36415; 83735; 85610; 80076; 87077; 87186; 84484; 83880; 70450; 71045; 96375; 96374; 99284; J3475; J7030; J2405; 81003; 81015